=== PATIENT | male | born 1960 | race Two or more races ===

== ENCOUNTER 2022-12-31 11:38 | Inpatient (IN) | payer OTHER ==
[~2022-12-31] VITALS: Ht 167.6 cm; Wt 68.0 kg
[2022-12-31] MEDS ORDERED: ACID REDUCER20 M1 PO (12:18)
[2022-12-31] MEDS ORDERED: FLEET ENEMA EX230 ML (12:19)
[2022-12-31 13:43] LABS: URINE APPEARANCE Clear; URINE BILIRRUBIN Negative (NEGATIVE); URINE BLOOD Negative; URINE COLOR Yellow; URINE GLUCOSE Negative (NEGATIVE); URINE LEUKOCYTE Trace; URINE NITRATE Negative; URINE PROTEIN Negative (NEGATIVE); URINE UROBILINOGEN 0.2 E.U./dl
[2022-12-31 13:45] LABS: HEMATOCRIT 43.6 % (39.0-48.0); HEMOGLOBIN 14.4 g/dL (13-16.00); MEAN CELL VOLUME 87.2 fL (80.0-100.00); MEAN CORPUSCULAR HEMOGLOBIN 28.8 pg (27.00-32.0); PLATELET COUNT 184 K/uL (150-450); RED CELL DISTRIBUTION WIDTH 14.4 % (11.5-14.5)
[2022-12-31 13:47] LABS: URINE RBC 2.2 uL (0.0-20.8); URINE WBC 1.8 uL (0.0-23.2)
[2022-12-31 13:54] LABS: URINE BACTERIA 1.2 uL (0.0-1933)
[2022-12-31 14:32] LABS: PARTIAL THROMBOPLASTIN TIME 28.2 SECONDS (22.0-34.0); PROTHROMBIN TIME 10.5 SECONDS (9.0-11.5)
[2022-12-31 14:34] LABS: CALCIUM 9.4 mg/dL (8.5-10.1); CREATININE SERUM 1.06 mg/dL (0.70-1.30); GFR 71.02; POTASSIUM 4.23 mEq/L (3.5-5.1)
[2022-12-31 22:06] LABS: AMYLASE 55 U/L (25-115); LIPASE 18 U/L (13-75)
[2023-01-01 14:19] LABS: CALCIUM 9.2 mg/dL (8.5-10.1); CHOL HDL RATIO 2.9 (0-5.0); CREATININE SERUM 1.16 mg/dL (0.70-1.30); GFR 64.01; POTASSIUM 4.1 mEq/L (3.5-5.1)
[2023-01-01 18:42] LABS: ob POSITIVE (NEGATIVE)
[2023-01-02 08:02] LABS: HEMATOCRIT 41.4 % (39.0-48.0); HEMOGLOBIN 13.8 g/dL (13-16.00); MEAN CORPUSCULAR HEMOGLOBIN 28.7 pg (27.00-32.0); MEAN CORPUSCULAR HGB CONC 33.4 g/dl (32.0-36.0); PLATELET COUNT 172 K/uL (150-450); RED BLOOD COUNT 4.81 M/uL (4.00-6.00); RED CELL DISTRIBUTION WIDTH 14.8 % (11.5-14.5)
[2023-01-02 08:35] LABS: ALBUMIN 3.1 gm/dL (3.4-5.0); BILIRUBIN TOTAL 1.07 mg/dL (0.3-1.2); CALCIUM 8.7 mg/dL (8.5-10.1); CREATININE SERUM 1.22 mg/dL (0.70-1.30); GFR 60.39; GLOBULINA 2.8 G/DL (2.4-3.5); MAGNESIUM 2.6 mg/dL (1.8-2.4); PHOSPHOROUS 3.8 mg/dL (2.5-4.9); POTASSIUM 4.56 mEq/L (3.5-5.1); TOTAL PROTEIN 5.9 gm/dL (6.4-8.2)
[2023-01-02 09:14] LABS: C-REACTIVE PROTEIN 1.38 MG/DL (0.00-0.29)
[2023-01-03] MEDS ORDERED: METRONIDAZOLE500 MG PO (14:32)
[2023-01-03] MEDS ORDERED: INTESTINEX680 M2 PO (14:32)
[2023-01-03] MEDS ORDERED: CIPRO500 MG PO (14:32)
[2023-01-03] MEDS ORDERED: PEPCID AC20 MG PO (14:32)
== END 2023-01-03 19:27 | disposition home or self-care (01) | DRG 392 ==
LOC: ER 11:38 → MEDI 21:07
PROVIDERS: Emergency Medicine; General Practice; Internal Medicine Infectious Disease; ADMIT Internal Medicine; ATTEND Internal Medicine
PROC: BW21YZZ Computerized Tomography (CT Scan) of Abdomen and Pelvis using Other Contrast (ICD-10-PCS; principal; 2022-12-31)
PROC: 3E0336Z Introduction of Nutritional Substance into Peripheral Vein, Percutaneous Approach (ICD-10-PCS; 2023-01-01)
DX: K52.9 Noninfective gastroenteritis and colitis, unspecified (principal); K61.1 Rectal abscess; R19.5 Other fecal abnormalities

== ENCOUNTER 2023-02-22 15:35 | Inpatient (IN) | payer OTHER ==
[~2023-02-22] VITALS: Ht 180.3 cm; Wt 77.6 kg
[~2023-02-22 15:35] MED LIST: ACID REDUCER20 M1 PO; CIPRO500 MG PO; FLEET ENEMA EX230 ML; INTESTINEX680 M2 PO; METRONIDAZOLE500 MG PO; PEPCID AC20 MG PO
[2023-02-22 18:41] LABS: HEMATOCRIT 41.2 % (39.0-48.0); HEMOGLOBIN 13.8 g/dL (13-16.00); MEAN CELL VOLUME 84.7 fL (80.0-100.00); MEAN CORPUSCULAR HEMOGLOBIN 28.3 pg (27.00-32.0); MEAN CORPUSCULAR HGB CONC 33.4 g/dl (32.0-36.0); PLATELET COUNT 200 K/uL (150-450); RED BLOOD COUNT 4.87 M/uL (4.00-6.00); RED CELL DISTRIBUTION WIDTH 14.6 % (11.5-14.5)
[2023-02-22 18:47] LABS: ERYTHROCYTE SEDIMENTATION RATE 8 mm/hr
[2023-02-22 19:01] LABS: INR 1.04; PARTIAL THROMBOPLASTIN TIME 28.8 SECONDS (22.0-34.0); PROTHROMBIN TIME 10.9 SECONDS (9.0-11.5)
[2023-02-22 19:03] LABS: CALCIUM 9.4 mg/dL (8.5-10.1); CREATININE SERUM 1.02 mg/dL (0.70-1.30); GFR 74.25
[2023-02-22 19:11] LABS: C-REACTIVE PROTEIN 1.11 MG/DL (0.00-0.29)
[2023-02-22 19:34] LABS: PH,URINE 7.5 (5.0-8.0); URINE APPEARANCE Clear; URINE BILIRRUBIN Negative (NEGATIVE); URINE BLOOD Negative; URINE COLOR Yellow; URINE GLUCOSE Negative (NEGATIVE); URINE LEUKOCYTE Negative; URINE NITRATE Negative; URINE PROTEIN Negative (NEGATIVE); URINE UROBILINOGEN 0.2 E.U./dl
[2023-02-22 19:38] LABS: URINE EPITHELIAL CELLS 1.5 uL (0.0-38.8); URINE RBC 4.5 uL (0.0-20.8)
[2023-02-22 19:39] LABS: URINE WBC 0.4 uL (0.0-23.2)
[2023-02-23 20:52] LABS: URINE APPEARANCE Clear; URINE BILIRRUBIN Negative (NEGATIVE); URINE BLOOD Negative; URINE COLOR Yellow; URINE GLUCOSE Negative (NEGATIVE); URINE LEUKOCYTE Negative; URINE NITRATE Negative; URINE PROTEIN Negative (NEGATIVE); URINE UROBILINOGEN 0.2 E.U./dl
[2023-02-23 20:55] LABS: URINE RBC 4.1 uL (0.0-20.8)
[2023-02-23 21:08] LABS: URINE WBC 1.5 uL (0.0-23.2)
[2023-02-24 07:40] LABS: BILIRUBIN TOTAL 1.82 mg/dL (0.3-1.2); BILIRUBIN,CONJUGATED 0.33 mg/dL (0.0-0.2); BILIRUBIN,UNCONJUGATED 1.49 mg/dL (0.0-0.6); CALCIUM 8.7 mg/dL (8.5-10.1); CHOL HDL RATIO 3.3 (0-5.0); CREATININE SERUM 1.13 mg/dL (0.70-1.30); GFR 65.97; GLOBULINA 2.7 G/DL (2.4-3.5); POTASSIUM 3.98 mEq/L (3.5-5.1); TOTAL PROTEIN 5.7 gm/dL (6.4-8.2)
[2023-02-24 08:22] LABS: C-REACTIVE PROTEIN 0.82 MG/DL (0.00-0.29)
[2023-02-24 08:40] LABS: INR 1.07; PARTIAL THROMBOPLASTIN TIME 30.8 SECONDS (22.0-34.0); PROTHROMBIN TIME 11.2 SECONDS (9.0-11.5)
[2023-02-24 08:41] LABS: HEMATOCRIT 39.7 % (39.0-48.0); HEMOGLOBIN 13.4 g/dL (13-16.00); MEAN CELL VOLUME 86.1 fL (80.0-100.00); MEAN CORPUSCULAR HGB CONC 33.6 g/dl (32.0-36.0); PLATELET COUNT 183 K/uL (150-450); RED BLOOD COUNT 4.61 M/uL (4.00-6.00)
[2023-02-24 19:44] LABS: CALCIUM 9.4 mg/dL (8.5-10.1); CHOL HDL RATIO 3.3 (0-5.0); CREATININE SERUM 1.1 mg/dL (0.70-1.30); GFR 68.05; POTASSIUM 4.13 mEq/L (3.5-5.1)
[2023-02-25 06:01] LABS: HEMATOCRIT 41.6 % (39.0-48.0); HEMOGLOBIN 14.1 g/dL (13-16.00); MEAN CORPUSCULAR HEMOGLOBIN 28.7 pg (27.00-32.0); MEAN CORPUSCULAR HGB CONC 33.8 g/dl (32.0-36.0); PLATELET COUNT 196 K/uL (150-450); RED BLOOD COUNT 4.89 M/uL (4.00-6.00); RED CELL DISTRIBUTION WIDTH 14.4 % (11.5-14.5)
[2023-02-25 06:29] LABS: INR 1.06; PARTIAL THROMBOPLASTIN TIME 30.2 SECONDS (22.0-34.0); PROTHROMBIN TIME 11.1 SECONDS (9.0-11.5)
[2023-02-25 06:54] LABS: ALBUMIN 3.1 gm/dL (3.4-5.0); BILIRUBIN TOTAL 1.84 mg/dL (0.3-1.2); BILIRUBIN,CONJUGATED 0.32 mg/dL (0.0-0.2); BILIRUBIN,UNCONJUGATED 1.52 mg/dL (0.0-0.6); CALCIUM 9.2 mg/dL (8.5-10.1); CHOL HDL RATIO 3.5 (0-5.0); CREATININE SERUM 1.04 mg/dL (0.70-1.30); GFR 72.6; GLOBULINA 3.5 G/DL (2.4-3.5); MAGNESIUM 2.2 mg/dL (1.8-2.4); POTASSIUM 4.13 mEq/L (3.5-5.1); TOTAL PROTEIN 6.6 gm/dL (6.4-8.2)
[2023-02-27 09:10] LABS: UREA CLEARANCE 47.1 ML/MIN
[2023-02-28 21:57] LABS: INR 1.11; PARTIAL THROMBOPLASTIN TIME 30.4 SECONDS (22.0-34.0); PROTHROMBIN TIME 11.6 SECONDS (9.0-11.5)
[2023-03-03 08:48] LABS: HEMATOCRIT 40.7 % (39.0-48.0); HEMOGLOBIN 13.8 g/dL (13-16.00); MEAN CELL VOLUME 84.8 fL (80.0-100.00); MEAN CORPUSCULAR HEMOGLOBIN 28.8 pg (27.00-32.0); PLATELET COUNT 173 K/uL (150-450); RED CELL DISTRIBUTION WIDTH 14.9 % (11.5-14.5)
[2023-03-03 09:09] LABS: ALBUMIN 3.1 gm/dL (3.4-5.0); BILIRUBIN TOTAL 1.29 mg/dL (0.3-1.2); CALCIUM 9.4 mg/dL (8.5-10.1); CREATININE SERUM 1.09 mg/dL (0.70-1.30); GFR 68.77; GLOBULINA 3.2 G/DL (2.4-3.5); POTASSIUM 4.32 mEq/L (3.5-5.1); TOTAL PROTEIN 6.3 gm/dL (6.4-8.2)
[2023-03-03] MEDS ORDERED: ACID REDUCER20 M1 PO (15:49)
[2023-03-03] MEDS ORDERED: VANCOMYCIN HCL1 GM PO (15:49)
[2023-03-03] MEDS ORDERED: AMOX-CLAV 875-1 EACH PO (15:49)
[2023-03-03] MEDS ORDERED: INTESTINEX680 M2 PO (15:49)
[2023-03-03] MEDS ORDERED: PEPCID AC20 MG PO (15:49)
== END 2023-03-03 19:19 | disposition home or self-care (01) | DRG 394 ==
LOC: ER 15:35 → MEDI 23:38
PROVIDERS: General Practice; Internal Medicine; Nurse Practitioner Family; ADMIT Internal Medicine; ATTEND Internal Medicine
PROC: 8E0ZXY6 Isolation (ICD-10-PCS; principal; 2023-02-26)
PROC: 0D9P3ZZ Drainage of Rectum, Percutaneous Approach (ICD-10-PCS; 2023-03-01)
PROC: 3E0T3BZ Introduction of Anesthetic Agent into Peripheral Nerves and Plexi, Percutaneous Approach (ICD-10-PCS; 2023-03-01)
DX: K61.1 Rectal abscess (principal); K51.90 Ulcerative colitis, unspecified, without complications; K52.9 Noninfective gastroenteritis and colitis, unspecified
CPT/HCPCS: 72196